=== PATIENT | female | born 1985 | race Caucasian/White ===

== ENCOUNTER 2022-12-28 21:42 | Observation (INO) | payer OTHER, SELFPAY ==
[2022-12-28 22:00] VITALS: BMI 55.0
--- NOTE | 2022-12-28 22:00 | OBADM ---
This patient, Raisa Mcqueen, admitted to the OB room OB Post 113 for observation. Patient/family oriented to hospital policies and general routines including ID bracelet, bed and alarms, visiting hours, pain management, procedures, bathroom and other care routines, personal items, smoking policy, room service/diet, and visiting hours. Patient/Family are encouraged to report perceived risks to care and to ask questions if they do not understand what they are told or what they should do.
[2022-12-28 22:01] VITALS: BP 104/71; PULSE 92
[2022-12-28 22:17] VITALS: BP 112/61; PULSE 92
[2022-12-28 22:31] VITALS: BP 117/61; PULSE 88
[2022-12-28] MEDS: CYCLOBENZAPRINE HCL 10 MG TABLET PO (23:10)
[2022-12-29] MEDS: LACTATED RINGERS 1,000 ML 999 ML IV CONT (00:44)
[2022-12-29] MEDS: TERBUTALINE SULFATE 1 MG/ML VIAL 0.25 MG SUB-Q ×2 (01:57→02:33)
[2022-12-29 02:00] VITALS: BP 131/77; PULSE 115
--- NOTE | 2022-12-29 10:24 | PM.OBTRLD ---
OB - Triage/Final Diagnosis Visit Information Date of evaluation: 12/29/22 Reason for evaluation: threatened labor Comments/Additional reasons for admission: I have assessed the risk for this patient, Raisa Muñoz Richar, and determined that she would benefit from observation care. Evaluation Vital signs: Vital Signs - 24 hr 12/28/22 22:01 12/28/22 22:17 12/28/22 22:31 Pulse Rate 92 92 88 Blood Pressure 104/71 112/61 117/61 Oxygen Delivery 12/29/22 02:00 12/28/22 22:00 Pulse Rate 115 H Blood Pressure 131/77 Oxygen Delivery Room Air
== END 2022-12-29 05:11 | disposition home or self-care (01) ==
PROVIDERS: Admitting Provider Obstetrics & Gynecology; Visit Provider Obstetrics & Gynecology
DX: O47.03 False labor before 37 completed weeks of gestation, third trimester (principal); Z3A.36 36 weeks gestation of pregnancy
CPT/HCPCS: 96372; A9270; G0378; G0379; J3105; J7120

== ENCOUNTER 2023-01-13 12:23 | Outpatient (CLI) | payer OTHER, SELFPAY ==
[2023-01-13 12:48] LABS: Basophils Absolute Auto 0.1 K/mm3 (0.0-0.1); Basophils Percent Auto 0.4 % (0.2-1.2); Eosinophils Absolute Auto 0.1 K/mm3 (0-0.3); Hematocrit 35.1 % (37.0-47.0); Hemoglobin 11.1 g/dL (12.0-15.0); Immature Granulocyte Absolute 0.08 K/mm3 (0.00-0.031); Immature Granulocyte Percent A 0.7 % (0-0.5); Lymphocytes Absolute Auto 1.72 K/mm3 (0.9-3.2); Mean Corpuscular HGB Conc 31.6 g/dl (32-36); Mean Corpuscular Hemoglobin 27.5 pg (26-34); Mean Corpuscular Volume 87.1 fl (80-100); Mean Platelet Volume 10.9 fl (7.4-10.4); Monocytes Absolute Auto 0.6 K/mm3 (0.1-0.6); Monocytes Percent Auto 4.7 % (2.6-8.5); Neutrophils Absolute Auto 9.7 K/mm3 (1.3-6.7); Neutrophils Percent Auto 79.2 % (45.5-73.1); Platelet Count Result 380 k/mm3 (150-375); Red Blood Count 4.03 M/mm3 (4.2-5.4); Red Cell Distribution Width 13.9 % (11.5-14.5); White Blood Count 12.3 K/mm3 (4.5-10.0)
[2023-01-15 13:48] LABS: Rapid Plasma Reagin Non-Reactive (NonReactive)
== END 2023-01-13 12:24 | disposition home or self-care (01) ==
LOC: ANHLAB 12:25
PROVIDERS: Visit Provider Obstetrics & Gynecology
DX: Z34.93 Encounter for supervision of normal pregnancy, unspecified, third trimester (principal); Z3A.00 Weeks of gestation of pregnancy not specified
CPT/HCPCS: 36415; 85025; 86592; 86850; 86900; 86901

== ENCOUNTER 2023-01-15 09:45 | Inpatient (IN) | payer OTHER, SELFPAY ==
--- NOTE | 2022-12-25 12:53 | PC.NURSE ---
verified with OR schedule and patient-C/S with tubal ligation on 01/15/23 at 1200 Patient given requisition for lab draw on 01/13/23
[2023-01-15] VITALS (49 sets, daily range): BP systolic 90–155; BP diastolic 54–128; PULSE 32–171; RESP 14–21; TEMP 36.1–36.6; O2SAT 94–100; BMI 53.3
--- NOTE | 2023-01-15 09:27 | WPDANESEPPF ---
Anes - Initial Pre Proc Eval Procedure: Operation Date: 01/15/23 12:00 Proposed Procedures p Repeat Section with Tubal Ligaton - Kwadwo Herman MD Date/Time: 01/15/23 09:27 Surgeon: Kwadwo Herman MD Pre Op Diagnosis: Repeat C section, Desire Sterilization Patient Data Age: 37 Gender: F Height: Weight: Allergies Allergy/AdvReac Type Severity Reaction Status Date / Time gadobenic acid Allergy Hives Verified 12/25/22 12:35 [From contrast - MRI] iohexol Allergy Hives Verified 12/25/22 12:35 [From contrast - CT, X-RAY] morphine Allergy Hives Verified 12/25/22 12:35 Home Medications Medication Instructions Recorded Confirmed Type fluoxetine 20 mg capsule (Prozac) 20 mg PO DAILY 12/25/22 12/25/22 History metformin 1,000 mg tablet 1,000 mg PO DAILY 12/25/22 12/25/22 History spironolactone 25 mg tablet 25 mg PO DAILY 12/25/22 12/25/22 History Patient hx anesthesia problems: none Family hx anesthesia problems: none Results Review: All pre-operative results and documents have been reviewed as part of the pre-operative evaluation. [facility] Past Medical History Medical History (Updated 01/15/23 @ 11:23 by Rahat Spencer MD) Morbid obesity with BMI of 50.0-59.9, adult Family History Family History (Updated 12/25/22 @ 12:40 by Ramiro Hernandez RN) Father Parkinson disease Grandparent Parkinson disease History of blood clots Mother Congestive heart failure Social History Social History Smoking status: Current some day smoker Tobacco type: cigarettes Substance use: never Lack of Transportation: No Lack of Food: Never True Current Housing: I Have Housing Concerned About Future Housing: No Difficulty Paying Gas/Electric Bills: No Difficulty Paying for Meds: No Currently Unemployed: No Education: Trade/Vocational Certificate Difficulty w/ Childcare or Family Care: No Spiritual care concerns: No Anes - Eval Final PreProcedure Day of Procedure 01/15/23 09:27 Patient weight: morbidly obese Heart: regular rate and rhythm Lungs: clear to auscultation and normal air movement Airway: Mallampati scale class II Neurological: alert and oriented Last oral intake: >/= 8 hours ASA classification: III Emergent: no Anesthetic plan: proceed Anesthesia type and monitoring: regional spinal Results Review: All pre-operative results and documents have been reviewed as part of the pre-operative evaluation. Informed Consent: The patient's anesthetic plan and its attendant risks and benefits were discussed with the patient/family/POA. Questions were solicited and answers provided to the satisfaction of the patient/family/POA.
--- NOTE | 2023-01-15 10:32 | LDADM ---
This patient, Raisa Mcqueen, was admitted to Labor/Delivery/Recovery 120 on 01/15/23 at 09:45. Plans for labor, pain management and were discussed with patient. Patient/family oriented to hospital policies and general routines including ID bracelet, bed and alarms, visiting hours, pain management, procedures, bathroom and other care routines, personal items, smoking policy, room service/diet and guest tray routines, infant security routines, and visiting hours. Patient/Family are encouraged to report perceived risks to care and to ask questions if they do not understand what they are told or what they should do. See [facility]BI[facility] for further documentation.
[2023-01-15] MEDS: LACTATED RINGERS 1,000 ML 999 ML IV CONT (10:40)
--- NOTE | 2023-01-15 11:39 | PM.IMHP ---
H&P: HPI History of Present Illness Date/Time: 01/15/23 11:39 Chief Complaint: Here for c section Narrative: 37 y/o at 39 2/7 weeks gestation here for repeat with concurrent tubal ligation. Has had a previous , desires a repeat. Also wants permanent contraception with tubal ligation. GBS neg. Review of Systems Review of Systems: All systems reviewed & are unremarkable except as noted in HPI and below PMFSH Past Medical History Medical History History of anxiety History of PCOS History of depression Morbid obesity with BMI of 50.0-59.9, adult Surgical History Surgical History History of delivery Family History Family History Father Parkinson disease Grandparent Parkinson disease History of blood clots Mother Congestive heart failure Social History Social History Smoking status: Current some day smoker Tobacco type: cigarettes Substance use: never Lack of Transportation: No Lack of Food: Never True Current Housing: I Have Housing Concerned About Future Housing: No Difficulty Paying Gas/Electric Bills: No Difficulty Paying for Meds: No Currently Unemployed: No Education: Trade/Vocational Certificate Difficulty w/ Childcare or Family Care: No Spiritual care concerns: No Meds Home Medications and Allergies Home Medications Medication Instructions Recorded Confirmed Type fluoxetine 20 mg capsule (Prozac) 20 mg PO DAILY 12/25/22 12/25/22 History metformin 1,000 mg tablet 1,000 mg PO DAILY 12/25/22 12/25/22 History spironolactone 25 mg tablet 25 mg PO DAILY 12/25/22 12/25/22 History Allergies Allergy/AdvReac Type Severity Reaction Status Date / Time gadobenic acid Allergy Hives Verified 12/25/22 12:35 [From contrast - MRI] iohexol Allergy Hives Verified 12/25/22 12:35 [From contrast - CT, X-RAY] morphine Allergy Hives Verified 12/25/22 12:35 Vital Signs Vital Signs - 24 hr 01/15/23 10:01 01/15/23 11:30 01/15/23 10:30 Temperature 36.4 C L Pulse Rate 112 H Blood Pressure 120/72 Oxygen Delivery Room Air Exam Const: Orientation/consciousness: patient oriented x3 Other: Well-developed, well-nourished female in no acute distress. Neck: Thyroid: thyroid normal Lymphatic: no lymphadenopathy noted (in neck, axilla or inguinal nodes) Resp: Effort & Inspection: normal respiratory effort Auscultation: clear to auscultation bilaterally Cardio: Rate: regular rate Rhythm: regular rhythm Heart sounds: S1 normal heart sound present and S2 normal heart sound present GI: Other: ABD: Gravid, soft, nontender, nondistended. No guarding or rebound tenderness. No hepatosplenomegaly. FHR 150 bpm. FH 42 cm. : General: Yes no CVA tenderness Other: Cervix closed, thick Back/Spine/Pelvis: Back: no CVA tenderness Skin: General skin exam: normal color and no rashes or lesions noted Neuro: General: patient oriented x3 Extrem: Other: Extremities: nontender with no edema Psych: Mental Status: mental status grossly normal Affect: normal affect Assessment and Plan Assessment and plan (1) History of delivery: Code(s): Z98.891 - History of uterine scar from previous surgery Status: Acute Assessment and Plan: A: IUP at 39 2/7 weeks with prior , desiring repeat. Also desiring permanent contraception with tubal ligation. P: She understands there are temporary methods of contraception available to her. She understands that there are nonsurgical options as well as surgical options. She understands that tubal ligation will render her permanently sterile. She understands that there is a failure rate associated with tubal ligation, as well as an
--- NOTE | 2023-01-15 11:58 | WPDHPUPDATE1 ---
History and Physical Update Update Date/Time: 01/15/23 11:58 History and Physical has been reviewed, including an updated exam of the patient. There are NO changes in the patient's condition. Risks, benefits, and alternatives have been discussed and questions answered. Patient agrees to proceed with procedure.
[2023-01-15] MEDS: KETOROLAC 30 MG/ML VIAL (*BKC) IV PUSH ×2 (12:35→19:15)
[2023-01-15] MEDS: LACTATED RINGERS 1,000 ML 125 ML IV CONT (13:08)
--- NOTE | 2023-01-15 13:22 | P.PCNOB_ITS ---
OB - Delivery Note Procedure Delivery date: 01/15/23 Procedure: Procedures Operation Date: 01/15/23 12:00 Actual Procedure Side Surgeon p Repeat Section with Tubal Ligaton Kwadwo Herman MD Repeat low transverse delivery Bilateral tubal ligation via modified [place] technique Induction method: None Delivery monitor: External FHT and External Uterine Route of delivery: Specimen: Yes (Cord blood, segments of bilateral Fallopian tubes) Quantitative Blood Loss (ml): 255 Anesthesia type: Spinal Disposition: PACU Complications: None Narrative: The patient was taken to the operating room where she was prepared and draped in the usual sterile fashion in dorsal supine position with a leftward tilt. She received cefazolin preoperatively. Spinal anesthesia was found to be adequate. A Pfannenstiel skin incision was made along the previous scar line and was carried through to the underlying layer of the fascia. The fascia was incised in the midline and the incision was extended laterally. The fascia was dissected free of the underlying rectus muscles. The rectus muscles were in the midline. The peritoneum was identified, tented up and entered sharply. The peritoneal incision was extended superiorly and inferiorly with good visualization of the bladder. The bladder blade was placed. The vesicouterine peritoneum was identified, tented up and entered sharply. The incision was extended laterally and the bladder flap was developed. The bladder blade was replaced. The uterus was then incised sharply in a transverse fashion along the lower uterine segment. The incision was extended laterally. The 's head was delivered atraumatically to the sterile field, followed by the body. The nose and mouth were bulb suctioned. After a delay, the cord was clamped and cut. The was handed off the field. Cord blood was collected. The placenta was removed manually and was passed off the field. The uterus was exteriorized and cleared of all clots and debris. The uterine incision was reapproximated using 0 Monocryl in a running, locked fashion. Excellent hemostasis resulted as did excellent reapproximation of the normal anatomy. The left fallopian tube was then identified by following it out to the fimbriated end. It was grasped in the midportion with a [place] clamp and a loop of tube was ligated with a free tie of 0 plain gut. The tubal segment was then transected and the specimen was passed off to be sent to pathology. Hemostasis was excellent. Attention was turned to the right fallopian tube which was similarly identified, ligated and transected. Once again, excellent hemostasis resulted. The uterus was returned the abdomen. The pelvis was irrigated copiously with warmed normal saline. Rigorous hemostasis was assured. The fascial layer was reapproximated using 0 Vicryl in a running fashion. The skin was closed with a running, subcuticular stitch of 4 0 Vicryl. Dermaflex was applied externally. Sponge, lap, needle and instrument counts were correct. The patient was taken to the recovery room in stable condition. The went to the nursery in stable condition. I was present and scrubbed the entire procedure. Baby Date of : 01/15/23 Time of : 12:32 Weeks of gestation at delivery: 39 Infant gender: Female Weight (pounds): 8 Weight (ounces): 6 presentation: vertex Placenta delivery description: Normal Configuration Cord Vessel Description: 3 Vessels and Delayed Cord Clamping score one minute: 9 score five minutes: 9
--- NOTE | 2023-01-15 13:27 | PM.OBDSVD ---
DS: Admitting Diagnosis Discharge Date 01/18/23 Admitting Diagnosis IUP at term Prior Desired sterility DS: Discharge Diagnosis Discharge Diagnosis (1) Unwanted fertility: Code(s): Z30.09 - Encounter for other general counseling and advice on contraception Status: Acute (2) History of delivery: Code(s): Z98.891 - History of uterine scar from previous surgery Status: Acute OB - DS: Summary OB Procedures : NST OB Procedures Intrapartum: and Tubal ligation OB Procedures: : None Peripartum Data Procedures: Procedures Operation Date: 01/15/23 12:00 Actual Procedure Side Surgeon p Repeat Section with Tubal Ligaton Kwadwo Herman MD Time Spent with Patient Time attestation: Total time spent providing and/or coordinating discharge services: Discharge Plan Discharge Attending physician on discharge: Kwadwo Herman Discharging Clinician: Kwadwo Herman Patient Disposition: Home, Self-Care Activity: pelvic rest Diet: regular Discharge Instructions: Call or return if temperature above 100.4? F, increased abdominal pain, increased vaginal bleeding or any new problems. Stand Alone Forms: General Discharge Information Follow-up/Referrals: Kwadwo Herman MD [Physician] - 4 Weeks Discharge Medications: New ibuprofen 600 mg tablet 600 mg PO Q6H PRN (Reason: cramps) Qty: 30 0RF hydrocodone-acetaminophen 5-325 mg tablet 1 - 2 tablet PO Q6H PRN (Reason: pain) Qty: 30 0RF ferrous sulfate 325 mg (65 mg iron) tablet 325 mg PO DAILY Qty: 30 0RF Continued metformin 1,000 mg Tablet 1,000 mg PO DAILY fluoxetine [Prozac] 20 mg Capsule 20 mg PO DAILY Discontinued spironolactone 25 mg Tablet 25 mg PO DAILY Date of admission: 01/15/23 09:45 Primary Care Provider: UNKNOWN,DOCTOR Admitting Provider: Kwadwo Herman Attending physician on admission: Kwadwo Herman Condition: Stable
--- NOTE | 2023-01-15 13:58 | PC.NURSE ---
FHT checked in OR at 1212. FHT 135.
[2023-01-15] MEDS: OXYTOCIN 30 UNITS/NS 500 ML 30 UNITS/500 ML BAG 125 UNITS IV CONT (15:17)
[2023-01-15] MEDS: HYDROcodone/acetaminophen (*CRX) 10-325 MG TABLET 1 TAB PO ×3 (16:06→23:17)
--- NOTE | 2023-01-15 16:44 | OBPPTRN ---
1529 Patient transferred to post room #290 via stretcher. Support person present. Oriented to unit, room, information board, rooming in, admission packet and security measures. Patient verbalizes understanding.
[2023-01-16 03:15] VITALS: BP 118/66; PULSE 69; RESP 16; TEMP 36.6
[2023-01-16] MEDS: HYDROcodone/acetaminophen (*CRX) 10-325 MG TABLET 1 TAB PO ×6 (03:15→20:45)
[2023-01-16] MEDS: KETOROLAC 30 MG/ML VIAL (*BKC) IV PUSH (03:15)
[2023-01-16 04:54] LABS: Basophils Absolute Auto 0.1 K/mm3 (0.0-0.1); Basophils Percent Auto 0.4 % (0.2-1.2); Eosinophils Absolute Auto 0.1 K/mm3 (0-0.3); Eosinophils Percent Auto 0.4 % (0-4.4); Hematocrit 30.4 % (37.0-47.0); Hemoglobin 9.6 g/dL (12.0-15.0); Immature Granulocyte Absolute 0.08 K/mm3 (0.00-0.031); Immature Granulocyte Percent A 0.6 % (0-0.5); Lymphocytes Absolute Auto 1.89 K/mm3 (0.9-3.2); Lymphocytes Percent Auto 14.1 % (18.3-44.2); Mean Corpuscular HGB Conc 31.6 g/dl (32-36); Mean Corpuscular Hemoglobin 28.3 pg (26-34); Mean Corpuscular Volume 89.7 fl (80-100); Mean Platelet Volume 11.5 fl (7.4-10.4); Monocytes Absolute Auto 0.8 K/mm3 (0.1-0.6); Monocytes Percent Auto 5.8 % (2.6-8.5); Neutrophils Absolute Auto 10.5 K/mm3 (1.3-6.7); Neutrophils Percent Auto 78.7 % (45.5-73.1); Platelet Count Result 283 k/mm3 (150-375); Red Blood Count 3.39 M/mm3 (4.2-5.4); White Blood Count 13.4 K/mm3 (4.5-10.0)
[2023-01-16] MEDS: IBUPROFEN 600 MG TABLET PO ×3 (07:13→20:45)
[2023-01-16] MEDS: SIMETHICONE 80 MG TAB.CHEW PO ×2 (07:13→11:19)
[2023-01-16 08:05] VITALS: BP 130/72; PULSE 70; RESP 18; TEMP 36.7; O2SAT 100
[2023-01-16] MEDS: MULTIVIT/MIN/PREN/FOL AC/IRON TABLET 1 TAB PO (08:19)
[2023-01-16] MEDS: POLYSACCHARIDE IRON COMPLEX 150 MG CAPSULE PO ×2 (08:19→16:59)
[2023-01-16] MEDS: metFORMIN HCL 500 MG TABLET 1000 MG PO (08:19)
[2023-01-16] MEDS: DOCUSATE SODIUM 100 MG CAPSULE PO ×2 (08:19→17:00)
[2023-01-16] MEDS: SPIRONOLACTONE 25 MG TABLET PO (08:20)
[2023-01-16] MEDS: FLUoxetine HCL 20 MG CAPSULE PO (08:20)
--- NOTE | 2023-01-16 09:51 | WPDANLDPN2 ---
Anes-Prog Note L&D Date/Time: 01/16/23 09:51 Comfortable throughout: section Neuraxial method: spinal Epidural/Spinal procedure site: clean & non-tender Neuro status: Neuro function grossly intact. Cardiovascular status: normal Respiratory status: normal Airway patency: baseline Mental status: baseline Post-Op hydration status: normal Vital Signs: Last Vital Signs Temp 98.1 F 01/16/23 08:05 Pulse 70 01/16/23 08:05 Resp 18 01/16/23 08:05 BP 130/72 01/16/23 08:05 Pulse Ox 100 01/16/23 08:05 O2 Del Method Room Air 01/15/23 15:29 Pain score (VAS): 0 I/O: Intake & Output 01/15/23 01/16/23 01/16/23 23:59 07:59 15:59 Intake Total 500 1000 Output Total 2000 400 Balance 500 -1000 -400 Post-procedural complaints: none Patient feedback: Patient satisfied with anesthetic care.
--- NOTE | 2023-01-16 10:54 | PC.NURSE ---
[id number] Introductions were made, then consulted with patient to assess needs related to . Mother led the conversation with her?plans to feed?her infant, the?experience so far and her medical history. Mother has to her breast, however; infant is very close to the breast, not sucking holding the nipple in the mouth. Resources provided for inpatient and outpatient services with the feeding sheet, mom/baby guide, business card and name written on the white board. Mother voiced understanding of information and consented to assistance. Mother works with her with encouragement and education. Discussed with mother the procedure used and placement of the incisions of anchor shape scars on her breast from the reduction surgery. Encouraged understanding of the benefits of skin to skin (demonstrating unwrapping infant and placing upright on her chest), stimulating with massage touch, changing positions to encourage wakefulness, how to watch for early feeding cues, responsive feeding, feeding on demand (aiming for 8-12 times in 24 hours, about every 2-3 hours), milk production, building/maintaining a milk supply, duration of feeding, signs of adequate intake/output and how to record on the feeding sheet. Reviewed positioning and ear, shoulder, hip alignment, supporting the breast to facilitate a deep latch, asymmetrical latch (off-center), leading with the chin with a big, open, wide gape and body close to mother. Reviewed bringing to the breast with chin buried rather than face to the breast. Assisted mother with holding breast to facilitate infant with a deep latch, then latched optimally to the left breast in football position. Education given to mother of how to visualize suck/swallow ratios and listen for drinking at the breast. Infant was able to maintain latch without discomfort to mother. Nipple care reviewed with optimal latch and good positioning. Reviewed good handwashing when or touching the breast/nipples to prevent infection. Resources used to facilitate learning were used with the visual handouts, tool, mom and baby guide. Mother voiced understanding of skin to skin, stimulating with massage touch, responsive feedings, talking to infant to encourage if it has been 2 -2.5 hours since the start of the last , to call if does not latch, or if there is discomfort with . Resources provided for inpatient/outpatient with business card, feeding sheet and the mom/baby guide. Parents voiced understanding of information, demonstrated learning and will call if there is a request for assistance. Reported to the primary RN. [id number] Mother called for assistance and once RN arrived infant was in the bassinet and mother states the fell asleep. Infant is stirring and mother was willing to attempt to breastfeed. Infant was placed skin to skin. Reviewed stimulating to wake and breastfeed. Once feeding cues were visualized, then was assisted to mother's right breast. Reviewed with mother bringing to the breast leading with the chin instead of face first. We practiced the teacup hold to attempt to latch . Infant latched shallow or held the nipple in the mouth. Unable to maintain a latch. Infant was placed skin to skin and mother was instructed to watch for feeding cues and call when demonstrates them, if the doesn't wake to breastfeed or if she gets the latched and it hurts or there's no deep latch. Mother states she feels the difference between a shallow latch, no latch and an effective latch. Reported to the Primary RN.
[2023-01-16 12:07] VITALS: BP 101/69; PULSE 69; RESP 16; TEMP 36.6; O2SAT 99
--- NOTE | 2023-01-16 12:18 | PC.NURSE ---
1211 - Mother is in the restroom and is swaddled in the bassinet. Instruction was given to have mother place skin to skin when she is finished and to call when she is ready for assistance. Father of baby acknowledged information.
--- NOTE | 2023-01-16 13:08 | PM.OBPNVD ---
OB - PN: Subj Subjective Date/time seen: 01/16/23 13:08 Narrative: Pain OK. Tolerating diet. OB - PN: Obj Data Labs 01/16/23 03:33 Labs: Laboratory Results - last 24 hr 01/16/23 03:33 WBC 13.4 H RBC 3.39 L Hgb 9.6 L Hct 30.4 L MCV 89.7 MCH 28.3 MCHC 31.6 L RDW 14.0 Plt Count 283 MPV 11.5 H Immature Gran % (Auto) 0.6 H Neut % (Auto) 78.7 H Lymph % (Auto) 14.1 L [place] % (Auto) 5.8 Eos % (Auto) 0.4 Baso % (Auto) 0.4 Lymph # (Auto) 1.89 [place] # (Auto) 0.8 H Eos # (Auto) 0.1 Baso # (Auto) 0.1 Abs Immat Gran (auto) 0.08 H Absolute Neuts (auto) 10.5 H Absolute Nucleated RBC 0.0 Nucleated RBC % 0.0 OB - PN A/P Plan day: 1 Comments: A: POD#1, doing well. P: Routine care. Time Spent With Patient Time with patient: less than 15 minutes Exam Narrative: AVSS I/O OK ABD soft, nontender, fundus firm. Incision c/d/i. EXT nontender
--- NOTE | 2023-01-16 13:28 | PC.NURSE ---
[id number] Consulted with patient to assess needs related to after a request for assistance. Mother works well with her infant with encouragement. Reviewed working with , supporting breast and how to protect the nipples with an optimal deep latch, good positioning, and good hand washing. Encouraged understanding the benefits of skin to skin, responding to feeding cues, frequencies of feeding 8-12 times in 24 hours (approximately 2-3 hours), duration of feedings, milk production, intake/output feeding sheet and signs of adequate intake encouraging swallowing at the breast. Reviewed positioning and alignment, supporting breast, off-centered (asymmetrical latch) and leading with the chin with big, open, wide gape. Several attempts were made to the right breast using football positioning. would suck a few times, then stop. Infant is unable to latch with negative pressure, holds nipple in the mouth and is easily removed from the breast. placed skin to skin, then once feeding cues are visualized, then infant was latched optimally to the left breast in football position after a couple of attemps. Education given to mother of how to visualize suck/swallow ratios and listen for drinking at the breast. was able to maintain latch without discomfort to mother. Nipple care reviewed with optimal latch, good positioning and using clean hands when feeding her infant and touching her breast. Mother voiced understanding of the education shared, to call for assistance if the infant does not latch or if there is discomfort with . Reported to the primary RN.
[2023-01-16] MEDS: ONDANSETRON HCL ODT 4 MG TABLET PO (18:17)
[2023-01-16 18:20] VITALS: BP 129/72; PULSE 73; RESP 16; TEMP 36.3
[2023-01-17] MEDS: HYDROcodone/acetaminophen (*CRX) 10-325 MG TABLET 1 TAB PO ×4 (00:30→12:07)
[2023-01-17 03:25] VITALS: BP 124/70; PULSE 75
[2023-01-17] MEDS: IBUPROFEN 600 MG TABLET PO ×3 (05:45→20:30)
[2023-01-17] MEDS: ONDANSETRON HCL ODT 4 MG TABLET PO (05:52)
[2023-01-17 07:40] VITALS: BP 137/71; PULSE 83; RESP 18; TEMP 37.2; O2SAT 98
[2023-01-17] MEDS: FLUoxetine HCL 20 MG CAPSULE PO (09:02)
[2023-01-17] MEDS: MULTIVIT/MIN/PREN/FOL AC/IRON TABLET 1 TAB PO (09:02)
[2023-01-17] MEDS: metFORMIN HCL 500 MG TABLET 1000 MG PO (09:03)
[2023-01-17] MEDS: POLYSACCHARIDE IRON COMPLEX 150 MG CAPSULE PO ×2 (09:03→16:49)
[2023-01-17] MEDS: SPIRONOLACTONE 25 MG TABLET PO (09:09)
--- NOTE | 2023-01-17 09:54 | PC.NURSE ---
On 01/17/23, the student, Shasha Lee, provided care and completed [facility] documentation on this patient. I have reviewed the student's documentation and agree with the findings.
[2023-01-17] MEDS: SIMETHICONE 80 MG TAB.CHEW PO (12:10)
--- NOTE | 2023-01-17 13:06 | PM.OBPNVD ---
OB - PN: Subj Subjective Date/time seen: 01/17/23 13:06 Narrative: Pain OK. Tolerating diet. OB - PN: Obj Data Labs 01/16/23 03:33 OB - PN A/P Plan Comments: A: POD#2, doing well. P: Routine care. Exam Narrative: AVSS I/O OK ABD soft, nontender, fundus firm. Incision c/d/i. EXT nontender
[2023-01-17] MEDS: HYDROcodone/acetaminophen (*CRX) 5-325 MG TABLET 1 TAB PO ×2 (16:48→20:30)
[2023-01-17 19:45] VITALS: BP 137/69; PULSE 88; RESP 16; TEMP 36.3
[2023-01-18] MEDS: HYDROcodone/acetaminophen (*CRX) 10-325 MG TABLET 1 TAB PO ×2 (00:13→11:00)
[2023-01-18] MEDS: SIMETHICONE 80 MG TAB.CHEW PO ×2 (00:25→07:45)
[2023-01-18 07:45] VITALS: PULSE 88; RESP 16; O2SAT 98
[2023-01-18] MEDS: MULTIVIT/MIN/PREN/FOL AC/IRON TABLET 1 TAB PO (07:45)
[2023-01-18] MEDS: SPIRONOLACTONE 25 MG TABLET PO (07:45)
[2023-01-18] MEDS: POLYSACCHARIDE IRON COMPLEX 150 MG CAPSULE PO (07:45)
[2023-01-18] MEDS: FLUoxetine HCL 20 MG CAPSULE PO (07:45)
[2023-01-18] MEDS: IBUPROFEN 600 MG TABLET PO (07:45)
[2023-01-18] MEDS: HYDROcodone/acetaminophen (*CRX) 5-325 MG TABLET 1 TAB PO (07:45)
[2023-01-18] MEDS: DOCUSATE SODIUM 100 MG CAPSULE PO (07:45)
[2023-01-18 08:35] VITALS: BP 124/70; PULSE 91; RESP 16; TEMP 36.7; O2SAT 98
--- NOTE | 2023-01-18 08:51 | PM.OBPNVD ---
OB - PN: Subj Subjective Date/time seen: 01/18/23 08:51 Narrative: Pain OK. Tolerating diet. Would like to go home. OB - PN: Obj Data Labs 01/16/23 03:33 OB - PN A/P Plan Comments: A: POD#3, doing well. P: Home to f/u 4 weeks. Time Spent With Patient Time with patient: less than 15 minutes Exam Narrative: AVSS ABD soft, nontender, fundus firm. Incision c/d/i. EXT nontender
[2023-01-18] MEDS: TETANUS,DIPHTHERIA,AC PERTUSSIS ADULT (0.5 ML) BOOSTRIX IM (11:00)
[2023-01-18] MEDS: metFORMIN HCL 500 MG TABLET 1000 MG PO (11:00)
--- NOTE | 2023-01-18 17:14 | PC.NURSE ---
1230- Primary RN reports that mother has decided to bottle feed only and states services are not needed.
[2023-01-19 13:42] VITALS: BP 124/64; PULSE 80; RESP 16; TEMP 36.8; O2SAT 97
== END 2023-01-18 14:30 | disposition home or self-care (01) | DRG 785 ==
LOC: ANHLDR 09:48 → ANHOB2 15:30
PROVIDERS: Admitting Provider Obstetrics & Gynecology; Visit Provider Obstetrics & Gynecology
PROC: 10D00Z1 Extraction of Products of Conception, Low, Open Approach (ICD-10-PCS; CPT 59514; principal; 2023-01-15 12:00)
DX: O34.211 Maternal care for low transverse scar from previous cesarean delivery (principal); Z37.0 Single live birth; Z3A.39 39 weeks gestation of pregnancy; Z30.2 Encounter for sterilization
CPT/HCPCS: 36415; 85025; 86592; 86850; 86900; 86901; 88302; 90715; A9270; J0131; J1100; J1170; J1885; J1940; J2370; J2405; J2590; J3010; J7120